=== PATIENT | female | born 1975 | race Caucasian/White ===

== ENCOUNTER 2018-11-09 08:13 | Observation (INO) ==
[2018-11-09] MEDS ORDERED: *HR* Midazolam HCl 2 MG/2 ML VIAL ONE (08:32)
[2018-11-09] MEDS ORDERED: *HR* FentaNYL (PF) 100 MCG/2 ML VIAL ONE (08:32)
[2018-11-09] MEDS ORDERED: *HR* Rocuronium Bromide 50 MG/5 ML VIAL ONE (08:33)
[2018-11-09] MEDS ORDERED: *HR* Propofol 200 MG/20 ML VIAL IVP ONE (08:33)
[2018-11-09] MEDS ORDERED: Lidocaine -MPF 2% 2 ML VIAL ONE (08:33)
[2018-11-09] MEDS ORDERED: Lidocaine HCL 4 ML Topical Solution (Laryng-O-Jet Kit Sterile Pak) TP ONE (08:37)
[2018-11-09] MEDS ORDERED: CeFAZolin Syr 2,000MG/20 ML 2,000 MG/20 ML SYRINGE IVPB ONE (08:44)
[2018-11-09] MEDS ORDERED: Ketorolac 30 MG/ML VIAL IVP ONE (08:44)
[2018-11-09] MEDS ORDERED: Albuterol 2.5 MG/3 ML NEBULIZER IH ONE (08:44)
[2018-11-09] MEDS ORDERED: Acetaminophen IV 1,000 MG/100 ML INFUS..BTL IVPB ONE (08:45)
[2018-11-09] MEDS: Ringers Solution, Lactated 1,000 ML IVC SCH (09:00)
--- NOTE | 2018-11-09 09:38 | Anesthesia Evaluation PreOp ---
Date of Encounter: 11/09/18 Time of Encounter: 09:36 - Past History Planned Operation: Robotic Incisional hernia repaair, Lap R oophorectomy Cardiac History: Hyperlipidemia, Other (PFO) Pulmonary History: Denies Any Significant HX MEDICAL INTERPRETER History: CVA (R sided numbness and tingling), Other (fibromyalgia) Other Medical History: GERD, Other (factor V leiden) Anesthesia History: No Prior Anesthetic Complications, Past Anesthesia (R carotid stent, LAVH) Test: Negative ([facility]) Alcohol Use: none Drug use: none Medications and Allergies Atorvastatin [Lipitor] 40 mg PO HS 02/22/16 [History] Diphenoxylate/Atropine [Lomotil 2.5 mg/0.025 mg] 1 each PO TID PRN 02/22/16 [History] Milnacipran HCl [Savella] 50 mg PO BID 02/22/16 [History] Ranitidine HCl [Heartburn Relief] 150 mg PO BID 02/22/16 [History] Tizanidine HCl [Zanaflex] 4 mg PO TID PRN 02/22/16 [History] Warfarin [Coumadin] 10 mg PO 5XW 05/23/16 [History] BuPROPion [Wellbutrin] 150 mg PO BID 09/20/16 [History] Metoprolol [Lopressor] 25 mg PO PRN PRN 09/20/16 [History] Warfarin [Coumadin] 12.5 mg PO 2XW 09/20/16 [History] Cyclobenzaprine [Flexeril] 10 mg PO TID #30 tablet 09/17/18 [Rx] Dexlansoprazole [Dexilant] 60 mg PO BID 09/17/18 [History] Diclofenac Sodium [Voltaren] 100 gm TP DAILY 09/17/18 [History] Ergocalciferol (VITAMIN D2) [Vitamin D2] 50,000 unit PO QWEEK 09/17/18 [History] Ferrous Sulfate 325 mg PO DAILY 09/17/18 [History] Ondansetron HCl [Zofran] 4 mg PO Q8HR PRN 09/17/18 [History] Pantoprazole Sodium [Protonix] 40 mg PO DAILY 09/17/18 [History] Paroxetine [Paxil] 10 mg PO DAILY 09/17/18 [History] Promethazine [Phenergan] 25 mg PO Q6HR PRN 09/17/18 [History] Topiramate [Topamax] 50 mg PO BID 09/17/18 [History] Nitrofurantoin (BID) [Macrobid] 100 mg PO BID #13 capsule 09/24/18 [Rx] Allergy/AdvReac Type Severity Reaction Status Date / Time tramadol AdvReac See Verified 11/09/18 09:39 Comments - Meds/Allergy Pre-op Review Medications Reviewed: Yes Allergies Reviewed: Yes Beta Blockers on Current Med List: Yes If Beta Blockers taken, Date/Time (Last Dose taken): pt states prn for tachycardia and does not remember last dose Anesthesia Results - Labs Laboratory Tests 09/17/18 11/05/18 11/05/18 11:37 16:55 16:55 WBC Hgb Hct Plt Count PT 21.7 H INR 1.9 APTT 58.1 H Sodium 139 Potassium 3.9 Chloride 112 H Carbon Dioxide 21 L BUN 13 Creatinine 0.74 Glucose 101 11/05/18 16:55 WBC 5.4 Hgb 13.5 Hct 40.3 Plt Count 172 PT INR APTT Sodium Potassium Chloride Carbon Dioxide BUN Creatinine Glucose - Imaging EKG: report reviewed (Interpretive Statements SINUS RHYTHM POSSIBLE RIGHT VENTRICULAR CONDUCTION DELAY Electronically Signed On 10-29-2018 15:07:33 EDT by Kin Real) Anesthesia Exam O2 Sat Height 1.73 m Height 1.73 m Weight 81.193 kg Weight 81.193 kg O2 Sat by Pulse Oximetry 99 Vital Signs Temp Pulse Resp BP Pulse Ox 97.9 F 66 18 104/70 99 11/09/18 08:45 11/09/18 08:45 11/09/18 08:45 11/09/18 08:45 11/09/18 08:45 Weight: 81kg NPO (# of Hours): >8 - HEENT Pupil (Motor): Pupils equal, EOMI Mallampati: II Teeth: Normal Oral Opening: Greater than 3 - MEDICAL INTERPRETER LOC: Oriented MEDICAL INTERPRETER Motor: Normal RUE, Normal LUE, Normal RLE, Normal LLE, Normal Face MEDICAL INTERPRETER Sensory: Normal: LUE, RLE, LLE, Deficit: RUE (Numbness right fingertips ), Face (R perioral numbness) - Cardiac Rhythm: Regular - Pulmonary Breath Sounds: bilateral Clear Respiratory Effort: Symmetrical Anesthesia Assess/Plan ASA Score: 3 Level of consciousness: Cooperative Anesthetic Plan: General Monitoring Plan: Standard Monitors Recovery Plan: PACU
--- NOTE | 2018-11-09 09:49 | History & Physical Report ---
Date of Encounter: 11/09/18 Time of Encounter: 09:48 24 Hour HP Update - Instructions Instructions: If the History and Physical is less than 30 days old and was completed prior to A.M. admission and or procedure and has NOT been updated on calendar day of procedure please complete this update prior to performing procedure. 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
--- NOTE | 2018-11-09 09:52 | OB/GYN Procedure Note ---
Laparoscopy Procedure - Diagnosis Date of procedure: 11/09/18 Pre-op diagnosis: other (1. Chronic RLQ Pain 2. Right Ovarian Cyst 3. S/P LAVH with LSO) Post-op diagnosis: same, pelvic adhesive disease - Procedure Laparoscopy procedure: operative laparoscopy, right salpingo oophorectomy Surgeon: Samantha Rodríguez Was there an insurance underwriting assistant present: Yes Rollway Man: Jil Fernandez Anesthesia Type: General Estimated blood loss (cc): 5 Complications: none Specimens: right ovary, right fallopian tube Findings: Multiple omental adhesions to the anterior aspect of the abdomen. These were taken down by Dr. Fernandez. The right ovary, with attached fallopian tube, had to 2-3 cm cysts but appeared grossly normal. Disposition: floor Narrative: Operation Performed Operative Laparoscopy with Right Salpingo-oophorectomy Indication for Surgery 43yo presents to preop for operative laparoscopy with right salpingo-oophorectomy. The patient has a history of persistent right lower quadrant pain and right ovarian cysts. She also has an umbilical hernia and a history of multiple abdominal surgeries. This procedure was boarded for co- surgery with Dr. Fernandez to perform lysis of adhesions and her hernia repair. Please see Dr. Fernandez's operative report for her portion of the case. In 2008 she went underwent a laparoscopic-assisted vaginal hysterectomy with a left salpingo-oophorectomy. The patient was informed of the risks and benefits of operative laparoscopy with right salpingo-oophorectomy. Risks included but were not limited to bleeding, infection, injury to the vulva, vagina or cervix, uterine perforation, bowel, bladder, ureters and surrounding neurovascular bundles, and the need for subsequent procedures. She is aware that removal of her last remaining ovary will put her into surgical menopause. She is also aware that she is not a candidate for hormone replacement therapy due to her history of DVT and stroke. The patient expressed understanding of the risks involved. All questions were answered and the patient consented to the procedure. Preoperative Diagnosis 1. Chronic right lower quadrant pain 2. Right ovarian cysts 3. Status post LAVH with LSO Postoperative Diagnosis Same + 4. Adhesive disease Surgeon Samantha Rodríguez D.O. Rollway Man(s) Jil Fernandez M.D. Anesthesia General Estimated Blood Loss 5 mL Findings Multiple adhesions of the omentum to the anterior abdominal wall. Grossly normal-appearing right ovary and fallopian tube with two 2-3 cm ovarian cysts. Complications None Specimens Right fallopian tube & Ovary Technique The patient was taken to the operating room where a timeout was performed to confirm correct patient and correct procedure. The patient was given general an esthesia and then positioned on the operating table in the supine position. All pressure points were padded and a warm blanket was placed to maintain control of core body temperature. The patient was then prepped and draped in the usual sterile fashion. Dr. Fernandez proceeded with abdominal entry, robotic port placement and lysis of adhesions. Please see Dr. Fernandez's operative report for further detail. Following lysis of adhesions, the right fallopian tube and ovary were visualized. A 5mm port, under direct visualization, was placed in the right lower quadrant without difficulty. The LigaSure and graspers were then used, by myself and Dr. Fernandez respectively, to isolate the RIGHT fallopian tube and ovary to seal, transect and remove the RIGHT Fallopian tube and ovary. The specimens were removed through an 8 mm port, using an Endocatch bag, and sent to Pathology as a single specimen. The right side of the pelvis was again surveyed and good hemostasis noted. The LigaSure was removed and Dr. Fernandez proceeded with the robotic assisted hernia repair with mesh. Please see Dr. Fernandez's operative report for her portion of the case.
[2018-11-09] MEDS ORDERED: *HR* Meperidine 25 MG/ML SYRINGE IVP PRN (09:57)
[2018-11-09] MEDS ORDERED: *HR* HYDROmorphone (PF) 1 MG/ML SYRINGE IVP PRN (09:57)
[2018-11-09] MEDS ORDERED: Ondansetron 4 MG/2 ML VIAL IVP ONE (09:57)
[2018-11-09] MEDS ORDERED: *HR* OxyCODONE Immed Rel 5 MG TABLET PO PRN (09:57)
[2018-11-09] MEDS ORDERED: *HR* Promethazine 25 MG/ML VIAL IVP PRN (09:57)
[2018-11-09] MEDS ORDERED: *HR* Succinylcholine 200 MG/10 ML VIAL IVP ONE (10:24)
[2018-11-09] MEDS ORDERED: Bupivacaine/EPI 1:200k 0.25%PF 30 ML VIAL ONE (11:06)
--- NOTE | 2018-11-09 11:10 | General Surg History&Physical ---
Date of Encounter: 11/09/18 Time of Encounter: 11:07 Assessment and Plan (1) Factor V deficiency Current Visit: Yes Status: Acute The assessment and plan as outlined above was discussed with the patient and/or family members who expressed understanding and agreement. All questions were answered. was bridged with lovenox, off coumadin 5 days (2) Incisional hernia Current Visit: Yes Status: Chronic The assessment and plan as outlined above was discussed with the patient and/or family members who expressed understanding and agreement. All questions were answered. planning robotic incisional hernia repair with mesh, lysis of adhesions Qualifiers: Obstruction and gangrene presence: without obstruction or gangrene Qualified Code(s): K43.2 - Incisional hernia without obstruction or gangrene; K43.91 - Incisional hernia, without obstruction or gangrene (3) Right ovarian cyst Current Visit: Yes Status: Chronic The assessment and plan as outlined above was discussed with the patient and/or family members who expressed understanding and agreement. All questions were answered. (4) Abdominal pain Current Visit: Yes Status: Chronic The assessment and plan as outlined above was discussed with the patient and/or family members who expressed understanding and agreement. All questions were answered. Qualifiers: Abdominal location: periumbilical Qualified Code(s): R10.33 - Periumbilical pain History of Present Illness Chief complaint: abdominal pain, incisional hernia HPI: Ms. Leung is a 43 year old female with history factor V leiden, history cva, incisional hernia and abdominal pain Past Med Surg Social Fam HX - Past Medical History Source: patient, old records reviewed Medical history: CVA, hyperlipidemia, other Additional medical history: Factor 5, fibromyalgia, HLD, migraines, Rt carotid artery stent, history intra-abd adhesions. PFO Psychiatric history: no psych history - Past Surgical History Surgical History: hysterectomy, other Additional surgical history: sigmoid injury/repair, right carotid stent, LSO, ex lap YENIFER - Social History Smoking Status: Never smoker Smokeless Tobacco Status: No Alcohol use: none Drug use: none - Family History Grandmother History Unknown: Yes Medications and Allergies Diphenoxylate/Atropine [Lomotil 2.5 mg/0.025 mg] 1 each PO QID PRN 02/22/16 [History] Milnacipran HCl [Savella] 50 mg PO BID 02/22/16 [History] Ranitidine HCl [Heartburn Relief] 150 mg PO BID 02/22/16 [History] Tizanidine HCl [Zanaflex] 4 mg PO TID PRN 02/22/16 [History] Warfarin [Coumadin] 10 mg PO SUMOWEFRSA 05/23/16 [History] Warfarin [Coumadin] 12.5 mg PO TUTH 09/20/16 [History] Ergocalciferol (VITAMIN D2) [Vitamin D2] 50,000 unit PO MO 09/17/18 [History] Ferrous Sulfate 325 mg PO QPM 09/17/18 [History] Pantoprazole Sodium [Protonix] 40 mg PO QAM 09/17/18 [History] Topiramate [Topamax] 50 mg PO BID 09/17/18 [History] Ascorbate Calcium [Vitamin C] 500 mg PO QPM 11/09/18 [History] Atorvastatin [Lipitor] 40 mg PO QPM 11/09/18 [History] BuPROPion SR (12 HR) [Wellbutrin SR] 150 mg PO BID 11/09/18 [History] Enoxaparin [Lovenox] 80 mg SQ BID 11/09/18 [History] Allergy/AdvReac Type Severity Reaction Status Date / Time tramadol AdvReac See Verified 11/09/18 09:39 Comments Review of Systems All systems PM: reviewed and no additional remarkable complaints except as stated All systems PM: The remainder of the systems were reviewed and are negative General Surgery Exam Initial Vital Signs Temp Pulse Resp BP Pulse Ox 97.9 F 66 18 104/70 99 11/09/18 08:45 11/09/18 08:45 11/09/18 08:45 11/09/18 08:45 11/09/18 08:45 - General physical appearance well nourished, no distress - Eyes normal ocular movement - ENT normal mucosa - Neck trachea midline - Respiratory normal expansion, clear to auscultation - Cardiovascular Cardiovascular exam: Present: RRR - Abdomen Abdomen general surgery: Present: soft Hernia: Present: incisional - Integumentary Integumentary general surgery: Present: warm and dry - Neurologic Present: normal coordination - Musculoskeletal Present: normal posture - Psychiatric Psychiatric general surgery: Present: A&Ox3 Results - Labs All other labs normal.
[2018-11-09] MEDS ORDERED: EPHEDrine 50 MG/ML VIAL ONE (11:50)
[2018-11-09] MEDS ORDERED: Dexamethasone 4 MG/ML VIAL ONE (12:35)
[2018-11-09] MEDS ORDERED: Neostigmine Methylsulfate 3 MG/3 ML SYRINGE ONE (12:35)
[2018-11-09] MEDS ORDERED: Ondansetron 4 MG/2 ML VIAL ONE (12:35)
[2018-11-09] MEDS ORDERED: Naloxone 0.4 MG/ML INJ IVP PRN (13:46)
--- NOTE | 2018-11-09 13:46 | Operative Note ---
Date of procedure: 11/09/18 Pre-op diagnosis: incisional hernia, abdominal pain Post-op diagnosis: same Procedure: Laparoscopic lysis of adhesions, robotic incisional hernia repair with mesh. Complications: none immediate Anesthesia: ADRIEL, local Surgeon: Jil Fernandez Was there an pharmacy sales assistant present: Yes Shift Stacker: Jossy Rodriguez Estimated blood loss (cc): 5 Specimen: none Condition: stable Disposition: PACU Procedure in Detail: The patient was brought to the operating suite and placed supine on the operating table. Sign in was performed and everyone was in agreement. Anesthesia was induced and patient was endotracheally intubated by anesthesia without incident. The arms were tucked bilaterally at the sides. The abdomen was prepped and draped in the usual sterile fashion. Timeout was performed again everyone was in agreement. An incision in the left upper quadrant subcostal position was made with an 11 blade. The Veress needle was placed through this and a water drop test confirmed placement. The abdomen was insufflated. We then entered the abdomen with a 5 mm 0 degree laparoscope on a 5 mm Xcel trocar. The area under entry was visualized there was no bleeding or apparent organ injury. We then placed a 8 mm port in the left lateral position under direct visualization after first incising the skin with an 11 blade. We then placed a 8 mm port in the left lower quadrant under direct visualization after first incising the skin with an 11 blade. The laparoscope was placed through this and we exchanged the 5 mm left upper quadrant port for an 8 mm port. The patient was placed in slight Trendelenburg position. Lysis of adhesions for 40 minutes was performed with gentle blunt dissection with the laparoscopic deBakey and heated scissors. Omental fat was in the patients several small upper midline incisional hernias and was reduced with the DeBakey. A 5 mm port was placed in the patients right lower quadrant under direct visualization after first incising the skin with an 11 blade. Patient was placed in steep trendelenberg left side down position. The right ovary was grasped with a DeBakey. Dr Rodríguez scrubbed in and completed the right salpingo-oophorectomy and her portion of the procedure is dictated in a separate note. The ovary was placed in a 8 mm laparoscopic Endo Catch bag and pulled out the left lateral 8 mm port site. The abdominal wall where the tube and ovary was excised with the fiber in the was no bleeding. Two #0 V-lock absorbable stitches were placed in the abdominal cavity as well as a 12 cm round symbotex covidian mesh. The mesh had a previously placed 2-0 vicryl tied to the middle of the mesh. The robot was brought over the patient's right abdomen and docked. The 2-0 Vicryl in the middle of the mesh was then pulled up through the abdominal wall near the hernia defect with a laparoscopic suture passer after a stab incision in the left abdomen skin several centimeters away from the umbilicus was made with 11 blade. The mesh was pulled up to the abdominal wall with the Vicryl stitch and hemostat was placed keeping the mesh taut against the abdominal wall. The mesh was secured to the abdominal wall with two #0 V-loc vicryl running stitches circumferentially. The two sutures were removed from the abdominal cavity. The air was evacuated from the abdominal cavity and the trochars removed. The middle 8 mm trocar site was closed at the abdominal wall with an 0 Vicryl [id number] stitch. 30 mL of 0.5% Marcaine was injected subcutaneously at the 3 port sites. The skin at the three 8 mm port sites were closed with a 4-0 Monocryl interrupted subcuticular stitch. The skin at the 5 mm port site was closed with a 4-0 Monocryl interrupted stitch. Mastisol and steristrips were placed to all wounds. All lap and instrument counts are correct at the end of the case. The patient was awoken by anesthesia and extubated in the OR without incident. The patient tolerated procedure well taken to PACU in stable condition.
[2018-11-09] MEDS ORDERED: 0.9 % Sodium Chloride 1,000 ML IVC SCH (14:00)
--- NOTE | 2018-11-09 14:22 | Anesthesia Evaluation Post Op ---
Date of Encounter: 11/09/18 Time of Encounter: 14:22 - Vital Signs Vital Signs: Vital Signs/O2 Sat/Glucose, Most Recent Temp Pulse Resp BP Pulse Ox 97.7 F 74 16 90/55 100 11/09/18 14:16 11/09/18 14:16 11/09/18 14:16 11/09/18 14:16 11/09/18 14:16 - Lungs Lungs: Clear Ascult./Percussion - Airway Airway: Non-obstructed - Cardiovascular Regular Rate - Mental Status Mental Status: Alert & Oriented, Answers Appropriately - Pain Pain Scale: 0 Pain Scale used: Numeric (1 - 10) - Nausea Vomiting Nausea Vomiting: Not Present - Discharge PostOp Status: Discharge Patient to home
[2018-11-09] MEDS: *HR* HYDROcodone/Acet 5/325 mg TABLET PO PRN ×2 (17:19→21:28)
[2018-11-09] MEDS ORDERED: *HR* Warfarin 10 MG TABLET PO SCH (18:00)
[2018-11-09] MEDS: *HR* Promethazine 25 MG/ML VIAL IVP PRN (18:33)
[2018-11-09] MEDS: Topiramate 25 MG TABLET PO SCH (20:29)
[2018-11-09] MEDS: BuPROPion SR (12 HR) 150 MG TABLET PO SCH (20:29)
[2018-11-09] MEDS: *HR* Enoxaparin 80 MG/0.8 ML SYRINGE SQ SCH (20:30)
[2018-11-09] MEDS: Ondansetron 4 MG/2 ML VIAL IVP PRN (23:15)
[2018-11-10] MEDS: *HR* HYDROcodone/Acet 5/325 mg TABLET PO PRN ×2 (02:24→07:23)
[2018-11-10] MEDS: *HR* Promethazine 25 MG/ML VIAL IVP PRN (02:27)
[2018-11-10 06:27] LABS: Basophils % 0.1 %; Hemoglobin 12.4 g/dL (11.5-15.4); Immature Granulocytes % 0.4 % (0-4); Lymphocytes % 12.9 %; Mean Corpuscular HGB Conc 32.6 g/dL (31.6-35.5); Mean Corpuscular Hemoglobin 31.2 pg (28.0-33.3); Mean Corpuscular Volume 95.7 fL (83.0-100.0); Mean Platelet Volume 10.2 fL (9.4-12.4); Monocytes # 0.7 K/mcL (0.0-1.3); Monocytes % 9.4 %; Neutrophils # 5.8 K/mcL (1.6-8.9); Platelet Count 161 K/mcL (140-400); Red Blood Count 3.97 M/mcL (3.82-4.97); Red Cell Distribution Width 12.8 % (11.5-14.5); Segmented Neutrophils % 77.2 %; White Blood Count 7.5 K/mcL (4.3-11.1)
[2018-11-10] MEDS: Ondansetron 4 MG/2 ML VIAL IVP PRN ×2 (06:30→22:48)
[2018-11-10 06:31] LABS: INR 1.1; Prothrombin Time 12.6 Seconds (9.4-12.1)
[2018-11-10] MEDS: *HR* Enoxaparin 80 MG/0.8 ML SYRINGE SQ SCH ×2 (07:24→20:52)
[2018-11-10] MEDS: Topiramate 25 MG TABLET PO SCH ×2 (07:26→20:51)
[2018-11-10] MEDS: BuPROPion SR (12 HR) 150 MG TABLET PO SCH ×2 (07:27→20:51)
--- NOTE | 2018-11-10 07:56 | Event Note ---
Date of Encounter: 11/10/18 Time of Encounter: 07:48 Pt is POD #1 s/p Laparoscopic lysis of adhesions, robotic incisional hernia repair with mesh with Dr. Fernandez & Laparoscopic right salpingo-oophorectomy with Dr. Rodríguez. She is tolerating a diet, no nausea or vomiting. She is not passing gas but she states that that is sometimes a problem due to her IBS. She states that her abdomen is" a lot of pain". She has not received a Tiro 5 since surgery. Her lidocaine patch was put on yesterday afternoon. She has not been able to ambulate due to the pain. She states that she is using her incentive spirometer (although it is currently by the window). She denies new onset chest pain or shortness of breath. Gen: NAD, AOx3 Heart: RRR Lungs: CTAB Abd: soft, +TTP in all quadrants, no R/R/G, +BS Exts: B/L LE have SCDs, posterior tibial pulses present and equal bilaterally, neg Marylin's A/P: 1. RLQ Pain - s/p Laparoscopic lysis of adhesions, robotic incisional hernia repair with mesh with Dr. Fernandez & Laparoscopic right salpingo-oophorectomy with Dr. Rodríguez - PO pain management per Dr. Fernandez - Increase ambulation to TID, laps up & down hallway - IS use 10x/hr while awake - Advance diet as tolerated, pending Dr. Fernandez's approval - Anticipate DC home when stable form Gen Surg standpoint & anticoagulated. INR this morning 1.1 2. Right Ovarian Cysts - s/p removal
[2018-11-10] MEDS ORDERED: Acetaminophen IV 1,000 MG/100 ML INFUS..BTL IVPB ONE (08:48)
[2018-11-10] MEDS ORDERED: *HR* FentaNYL (PF) 100 MCG/2 ML VIAL IVP ONE (08:49)
[2018-11-10] MEDS: Ringers Solution, Lactated 1,000 ML IVC SCH (09:08)
--- NOTE | 2018-11-10 10:24 | General Surgery Progress Note ---
<TonyMarija Meyer - Last Filed: 11/10/18 10:21> Date of Encounter: 11/10/18 Time of Encounter: 08:30 - Assessment and Plan (1) Incisional hernia Current Visit: Yes Status: Chronic Date of procedure: 11/09/18 Pre-op diagnosis: incisional hernia, abdominal pain Post-op diagnosis: same Procedure: Laparoscopic lysis of adhesions, robotic incisional hernia repair with mesh. Complications: none immediate Anesthesia: ADRIEL, local Surgeon: Jil Fernandez 12 cm round symbotex covidian mesh placed during procedures. Patient was also noted to undergo right salpingo-oopherectomy by Dr. Rodríguez at that time. POD #1 as above. She is recovering has expected today. She is having abdominal pain that she states is not controlled. She is getting out of bed, voiding per bedside commode, and denies nausea or vomiting. Plan: Continue supportive care and discomfort management while awaiting full return of bowel function stop [place], start Percocet 1G Ofirmev IV x1 dose fentanyl 50 g times 1 dose *avoid Toradol secondary to anticoagulation to reduce the risk of posto perative bleeding Continue G.I. 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 Lovenox BID resume warfarin therapy continue to closely monitor for postoperative bleeding (3) Right ovarian cyst Current Visit: Yes Status: Chronic See above Subjective Patient reports: still having pain (states not controlled), voiding w/o difficulty, no flatus, no bowel movement, afebrile Objective Vital Signs - Last 8 Hours Temp Pulse Resp BP Pulse Ox 11/10/18 07:02 98.6 F 80 15 111/69 98 11/10/18 04:50 98.3 F 83 16 117/70 98 Intake and Output 11/09/18 11/10/18 11/10/18 23:59 07:59 15:59 Intake Total 100 / 520 496 / 716 220 / 716 Output Total 250 / 255 900 / 900 Balance -150 / 265 -404 / -184 220 / -184 Intake: IV Fluids 496 / 596 100 / 596 0.9 % Sodium Chloride 1,000 ML 496 / 496 @ 30 mls/hr IVC .Q24H SURYA Rx#: [id number] Ofirmev 1,000 mg/100 ml 1,000 100 / 100 mg In 100 ml @ 400 mls/hr IVPB ONCE ONE Rx#:[id number] Oral 100 / 100 120 / 120 Output: Urine 250 / 250 900 / 900 Other: # Voids 1 Weight 84.368 kg Patient Weight 11/10/18 23:59 Weight 84.368 kg - General physical appearance well nourished, no distress, moderate pain - Eyes normal ocular movement - ENT atraumatic, normocephalic - Neck Neck exam: trachea midline - Respiratory normal expansion, normal respiratory effort - Cardiovascular Cardiovascular exam: Present: RRR - Abdomen Abdomen: Present: soft, tender (expectd postoperative). 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 continue lovenox and coumadin, trend inr (2) Incisional hernia Current Visit: Yes Status: Chronic s/p lap YENIFER, right salpingoophorectomy, incisional hernia repair with mesh adv diet as tolerated prn antiemetics continue home meds change po pain medication to percocet start lidoderm patch OOB to chair ambulate TID Qualifiers: Obstruction and gangrene presence: without obstruction or gangrene Qualified Code(s): K43.2 - Incisional hernia without obstruction or gangrene; K43.91 - Incisional hernia, without obstruction or gangrene (3) Right ovarian cyst Current Visit: Yes Status: Chronic s/p right salpingo-oophorectomy (4) Abdominal pain Current Visit: Yes Status: Chronic pain not controlled post op start percocet lidoderm patch Qualifiers: Abdominal location: right upper quadrant Qualified Code(s): R10.11 - Right upper quadrant pain Subjective Patient reports: still having pain (states not controlled, primarly right sided abdomen), voiding w/o difficulty, no flatus, no bowel movement, nausea, afebrile Objective Vital Signs - Last 8 Hours Temp Pulse Resp BP Pulse Ox 11/11/18 15:03 98.9 F 90 14 113/77 98 Intake and Output 11/11/18 11/11/18 11/11/18 07:59 15:59 23:59 Intake Total 0 / 0 Output Total 0 / 200 200 / 200 Balance 0 / -200 -200 / -200 Intake: Oral 0 / 0 Output: Urine 0 / 200 200 / 200 Other: Percent of Meal Consumed 0% - General physical appearance well developed, well nourished - Eyes normal ocular movement - ENT normal mucosa, normocephalic - Neck Neck exam: trachea midline - Respiratory normal expansion, normal respiratory effort - Cardiovascular Cardiovascular exam: Present: RRR - Abdomen Abdomen: Present: bowel sounds present, soft, tender - Incision Incision: Present: clean and dry, intact - Integumentary no rash - Neurologic normal coordination, normal sensation - Musculoskeletal normal posture - Psychiatric oriented to time, oriented to person, oriented to place - Labs 11/11/18 04:59 - Attending Attestation I have personally performed a face to face evaluation on this patient. I have reviewed and agree with the care plan. History and Exam by me shows:
[2018-11-10] MEDS: *HR* OxyCODONE/APAP 5/325 TABLET PO PRN ×3 (11:30→20:51)
[2018-11-10] MEDS: tiZANidine 4 MG TABLET PO PRN ×2 (13:28→22:52)
[2018-11-10] MEDS: *HR* Warfarin 10 MG TABLET PO SCH (17:28)
[2018-11-10] MEDS ORDERED: *HR* Warfarin 2.5 MG TABLET PO SCH (18:00)
[2018-11-10] MEDS ORDERED: *HR* Warfarin 10 MG TABLET PO SCH (18:00)
[2018-11-11] MEDS: *HR* OxyCODONE/APAP 5/325 TABLET PO PRN ×3 (01:20→18:12)
[2018-11-11] MEDS: *HR* Promethazine 25 MG/ML VIAL IVP PRN ×2 (01:24→13:34)
[2018-11-11 05:58] LABS: Basophils % 0.3 %; Eosinophils # 0.1 K/mcL (0.0-0.6); Eosinophils % 1.6 %; Hematocrit 36.6 % (35.3-44.9); Immature Granulocytes % 0.4 % (0-4); Lymphocytes # 1.4 K/mcL (0.6-4.6); Lymphocytes % 18.2 %; Mean Corpuscular HGB Conc 32.8 g/dL (31.6-35.5); Mean Corpuscular Hemoglobin 31.3 pg (28.0-33.3); Mean Corpuscular Volume 95.3 fL (83.0-100.0); Mean Platelet Volume 10.3 fL (9.4-12.4); Monocytes # 0.6 K/mcL (0.0-1.3); Monocytes % 7.4 %; Neutrophils # 5.4 K/mcL (1.6-8.9); Platelet Count 163 K/mcL (140-400); Red Blood Count 3.84 M/mcL (3.82-4.97); Red Cell Distribution Width 13.1 % (11.5-14.5); Segmented Neutrophils % 72.1 %; White Blood Count 7.5 K/mcL (4.3-11.1)
[2018-11-11 06:11] LABS: INR 1.3
[2018-11-11] MEDS: BuPROPion SR (12 HR) 150 MG TABLET PO SCH ×2 (09:47→22:45)
[2018-11-11] MEDS: *HR* Enoxaparin 80 MG/0.8 ML SYRINGE SQ SCH ×2 (09:47→22:44)
[2018-11-11] MEDS: Topiramate 25 MG TABLET PO SCH ×2 (09:47→22:45)
[2018-11-11] MEDS: Ondansetron 4 MG/2 ML VIAL IVP PRN ×2 (09:56→18:12)
--- NOTE | 2018-11-11 13:06 | General Surgery Progress Note ---
<Cassidy Fenton - Last Filed: 11/11/18 14:23> Date of Encounter: 11/11/18 Time of Encounter: 11:30 - Assessment and Plan (1) Incisional hernia Current Visit: Yes Status: Chronic POD #2 Laparoscopic lysis of adhesions, robotic incisional hernia repair with mesh with Dr. 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 Continue lovenox bridge Continue wafarin Repeat PT/INR in the am (3) Abdominal pain Current Visit: Yes Status: Chronic Right sided abdominal pain Lidocaine patch placed to right side Continue Oxycodone and Percocet prn Qualifiers: Abdominal location: right upper quadrant Qualified Code(s): R10.11 - Right upper quadrant pain Subjective Patient reports: still having pain, voiding w/o difficulty, no flatus, no bowel movement, nausea, afebrile, other (Patient states that her right sided pain has not improved.) Objective Vital Signs - Last 8 Hours Temp Pulse Resp BP Pulse Ox 11/11/18 06:30 98.8 F 88 14 96/62 97 Intake and Output 11/10/18 11/11/18 11/11/18 23:59 07:59 15:59 Intake Total 0 / 820 Output Total 0 / 900 0 / 0 Balance 0 / -80 0 / 0 Intake: Oral 0 / 120 Output: Urine 0 / 900 0 / 0 - General physical appearance well developed, well nourished, moderate distress, moderate pain - Eyes normal ocular movement - ENT normal mucosa, atraumatic, normocephalic - Neck Neck exam: trachea midline - Respiratory normal respiratory effort, clear to auscultation, other (diminished bibasilar bases) - Cardiovascular Cardiovascular exam: Present: RRR - Abdomen Abdomen: Present: bowel sounds present, soft, tender (right sided tenderness) - Incision Incision: Present: clean and dry, intact - Neurologic CN 2-12 grossly intact - Psychiatric oriented to time, oriented to person, oriented to place, speech is normal, memory intact - Labs 11/11/18 04:59 Consult Discharge Plan - Plan Referrals: Jil Fernandez MD [Partnered Physician] - 11/25/18 2:20 pm Itzel Hatfield CNP [Primary Care Provider] - - Attending Attestation For this encounter, I have reviewed the [employer] or PA documentation, treatment plan, and medical decision making; and I have had face to face time with this patient. 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 continue lovenox, coumadin, monitor INR (2) Incisional hernia Current Visit: Yes Status: Chronic pod 2, stacey, RIHR with mesh regular diet pain control ambulate OOB to chair reglan added for nausea lidoderm patch Qualifiers: Obstruction and gangrene presence: without obstruction or gangrene Qualified Code(s): K43.2 - Incisional hernia without obstruction or gangrene; K43.91 - Incisional hernia, without obstruction or gangrene (3) Abdominal pain Current Visit: Yes Status: Chronic will increase percocet to 7.5 mg Qualifiers: Abdominal location: right upper quadrant Qualified Code(s): R10.11 - Right upper quadrant pain Subjective Patient reports: still having pain (no improvement compared to yesterday), voiding w/o difficulty, no flatus, no bowel movement, nausea (better than yesterday), other Objective Vital Signs - Last 8 Hours Temp Pulse Resp BP Pulse Ox 11/11/18 15:03 98.9 F 90 14 113/77 98 Intake and Output 11/11/18 11/11/18 11/11/18 07:59 15:59 23:59 Intake Total 0 / 0 Output Total 0 / 200 200 / 200 Balance 0 / -200 -200 / -200 Intake: Oral 0 / 0 Output: Urine 0 / 200 200 / 200 Other: Percent of Meal Consumed 0% - General physical appearance well developed, well nourished, no distress, moderate pain - Eyes normal ocular movement - ENT normal mucosa, normocephalic - Respiratory clear to auscultation - Cardiovascular Cardiovascular exam: Present: RRR - Abdomen Abdomen: Present: bowel sounds present, soft, tender. Absent: distended, guarding - Incision Incision: Present: clean and dry, intact - Integumentary no rash, no growths - Musculoskeletal normal posture - Psychiatric oriented to time, oriented to person, oriented to place, speech is normal, memory intact - Labs 11/11/18 04:59 - Attending Attestation I have personally performed a face to face evaluation on this patient. I have reviewed and agree with the care plan. History and Exam by me shows:
[2018-11-11] MEDS: Metoclopramide 10 MG/2 ML VIAL IVP SCH ×2 (18:09→22:46)
[2018-11-11] MEDS: *HR* Warfarin 10 MG TABLET PO SCH (18:09)
[2018-11-11] MEDS: *HR* OxyCODONE/APAP 7.5/325 TABLET PO PRN (22:46)
[2018-11-12] MEDS: *HR* OxyCODONE/APAP 7.5/325 TABLET PO PRN ×2 (05:55→11:25)
[2018-11-12] MEDS: Metoclopramide 10 MG/2 ML VIAL IVP SCH ×2 (05:55→11:25)
[2018-11-12 07:26] VITALS: BP 105/68
[2018-11-12] MEDS: *HR* Enoxaparin 80 MG/0.8 ML SYRINGE SQ SCH (08:04)
[2018-11-12] MEDS: BuPROPion SR (12 HR) 150 MG TABLET PO SCH (08:04)
[2018-11-12] MEDS: Topiramate 25 MG TABLET PO SCH (08:04)
--- NOTE | 2018-11-12 09:24 | Discharge Summary ---
Date of Encounter: 11/12/18 Time of Encounter: 10:13 - Discharge Diagnosis (1) Incisional hernia Priority: Primary Status: Resolved Qualifiers: Obstruction and gangrene presence: without obstruction or gangrene Qualified Code(s): K43.2 - Incisional hernia without obstruction or gangrene; K43.91 - Incisional hernia, without obstruction or gangrene (2) Factor V deficiency Priority: Secondary Status: Chronic (3) Right ovarian cyst Priority: Secondary Status: Chronic General Surgery Exam Initial Vital Signs Temp Pulse Resp BP Pulse Ox 97.9 F 66 18 104/70 99 11/09/18 08:45 11/09/18 08:45 11/09/18 08:45 11/09/18 08:45 11/09/18 08:45 - General physical appearance well nourished, no distress, no pain (moderate with movement but controlled) - Neck trachea midline - Respiratory normal expansion, normal respiratory effort - Cardiovascular Cardiovascular exam: Present: RRR - Abdomen Abdomen general surgery: Present: bowel sounds present, soft, tender (expected postoperative) - Incision Incision: Present: clean and dry, intact - Integumentary Integumentary general surgery: Present: warm and dry - Neurologic Present: normal coordination, normal sensation - Musculoskeletal Present: normal gait, normal posture - Psychiatric Psychiatric general surgery: Present: A&Ox3 - Hospital Course Hospital course: Ms. Leung is a 43 year old female who presented on 11/09/2018 for an elective incisional hernia repair and co-surgery with medical doctor nuclear medicine. She underwent lap ysis of adhesions, robotic incisional hernia repair with 12 cm round symbotex covidian mesh (Dr. Fernandez) and right salpingo-oopherectomy by Dr. Rodríguez at that time. Her postoperative course was complicated by pain control. She reports her pain is now controlled, she has been out of bed to the chair and ambulate in the hallway. She would like to go home today. We will begin discharge planning to home with a follow-up in the office in approximately 2 weeks. Of note during the hospital stay she was started on Lovenox BID until her INR was therapeutic. On 11/12/2018 her INR was 2.0. She is advised that she does not need to continue the Lovenox injections at home and follow-up with her Coumadin clinic as directed. - Time Spent with Patient Total time spent providing and/or coordinating discharge services: - Discharge Medications Prescriptions: New Docusate Sodium [Colace] 100 mg PO BID PRN #30 capsule PRN Reason: Contstipation Polyethylene Glycol 3350 [MiraLAX Powder Bulk 17.9 Oz] 1 scoop PO DAILY 30 Days #510 gm OxyCODONE Immed Rel [Roxicodone 5 MG] 5 mg PO Q6HR PRN 7 Days #28 tablet PRN Reason: Severe Pain Ondansetron ODT [Zofran ODT] 4 mg SL Q4HR PRN #30 tab.rapdis PRN Reason: Nausea Lidocaine Patch [Lidoderm 5% patch] 1 each TP DAILY PRN 15 Days #15 adh..patch PRN Reason: Pain Continued Ascorbate Calcium [Vitamin C] 500 mg PO QPM BuPROPion SR (12 HR) [Wellbutrin SR] 150 mg PO BID Atorvastatin [Lipitor] 40 mg PO QPM Diphenoxylate/Atropine [Lomotil 2.5 mg/0.025 mg] 1 each PO QID PRN #0 PRN Reason: Diarrhea Ranitidine HCl [Heartburn Relief] 150 mg PO BID Milnacipran HCl [Savella] 50 mg PO BID Tizanidine HCl [Zanaflex] 4 mg PO TID PRN PRN Reason: Spasms Warfarin [Coumadin] 10 mg PO SUMOWEFRSA Warfarin [Coumadin] 12.5 mg PO TUTH Ergocalciferol (VITAMIN D2) [Vitamin D2] 50,000 unit PO MO Ferrous Sulfate 325 mg PO QPM Pantoprazole Sodium [Protonix] 40 mg PO QAM Topiramate [Topamax] 50 mg PO BID Discontinued Enoxaparin [Lovenox] 80 mg SQ BID Home Medications: Milnacipran HCl [Savella] 50 mg PO BID 02/22/16 [History] Ranitidine HCl [Heartburn Relief] 150 mg PO BID 02/22/16 [History] Tizanidine HCl [Zanaflex] 4 mg PO TID PRN 02/22/16 [History] Warfarin [Coumadin] 10 mg PO SUMOWEFRSA 05/23/16 [History] Warfarin [Coumadin] 12.5 mg PO TUTH 09/20/16 [History] Ergocalciferol (VITAMIN D2) [Vitamin D2] 50,000 unit PO MO 09/17/18 [History] Ferrous Sulfate 325 mg PO QPM 09/17/18 [History] Pantoprazole Sodium [Protonix] 40 mg PO QAM 09/17/18 [History] Topiramate [Topamax] 50 mg PO BID 09/17/18 [History] Ascorbate Calcium [Vitamin C] 500 mg PO QPM 11/09/18 [History] Atorvastatin [Lipitor] 40 mg PO QPM 11/09/18 [History] BuPROPion SR (12 HR) [Wellbutrin SR] 150 mg PO BID 11/09/18 [History] Diphenoxylate/Atropine [Lomotil 2.5 mg/0.025 mg] 1 each PO QID PRN #0 11/12/18 [Rx] Docusate Sodium [Colace] 100 mg PO BID PRN #30 capsule 11/12/18 [Rx] Lidocaine Patch [Lidoderm 5% patch] 1 each TP DAILY PRN 15 Days #15 adh..patch 11/12/18 [Rx] Ondansetron ODT [Zofran ODT] 4 mg SL Q4HR PRN #30 tab.rapdis 11/12/18 [Rx] OxyCODONE Immed Rel [Roxicodone 5 MG] 5 mg PO Q6HR PRN 7 Days #28 tablet 11/12/18 [Rx] Polyethylene Glycol 3350 [MiraLAX Powder Bulk 17.9 Oz] 1 scoop PO DAILY 30 Days #510 gm 11/12/18 [Rx] Allergies/Adverse Reactions: Allergy/AdvReac Type Severity Reaction Status Date / Time tramadol AdvReac See Verified 11/09/18 09:39 Comments Date of admission: 11/09/18 11:04 Primary care physician: Itzel Hatfield [employer]CH[employer]ICIAN Discharging clinician: Marija Jimenez Anticipated date of discharge: 11/12/18 Labs on day of discharge: Labs from last 24 hours 11/12/18 05:30 PT 23.0 H D INR 2.0 D - Patient Status Disposition: Home, Self-Care Condition: Good Functional capacity at discharge: independent ambulation Overall status at discharge: patient is progressing back to baseline - Discharge Instructions Instructions: Laparoscopic Herniorrhaphy (DC), Laparoscopic Salpingo- oophorectomy (DC) Follow Up With: Jil Fernandez MD [Partnered Physician] - 11/25/18 2:20 pm Itzel Hatfield CNP [Primary Care Provider] - Additional Instructions: General Surgical Discharge Instructions 1. No pushing, pulling, or lifting greater than 15 lbs for 6 weeks. 2. You may remove your dressings and shower beginning today, but no tub baths, soaking, or swimming for 2 weeks. 3. No driving for one weeks unless otherwise specified and then you may resume driving when you are off narcotics and are safe to react in a car. 4. Take 1000mg acetaminophen every 6 hours. Apply ice to your abdomen for 20 minutes every hour you are awake. Apply one lidocaine patch daily if needed. If this does not relieve discomfort, you may take the as needed Oxycodone. Eat a small snack with pain medication as this will help reduce the risk of nausea. Take narcotics as directed. Do not take more narcotics then directed and do not share your narcotics with any other person. Do not drink alcohol while on narcotics. You can take the Zofran/ondansetron if needed for nausea or with a dose of narcotics to prevent nausea. 5. Take stool softeners (Colace) twice daily and (Miralax) while taking narcotics daily until you are having daily bowel movements that are mashed potatoes consistency and not painful. You can then decrease MiraLAX to every other day or as needed. Continue the stool softeners until you stop taking narcotics.. You may hold for loose stools. 6. Report any fevers greater than 100.5F, increase abdominal discomfort, drainage that looks like pus, increased redness or pain at the surgical site, or any vomiting. 7. Report any pain in the calves, shortness of breath, or rapid heartbeat. 8. Follow-up in the office as directed. 9. You do not need to continue the Lovenox shots because your INR was 2.0 today () follow up with your Coumadin clinic on tomorrow for directions through the weekend. - Diet and Activity Activity: increase activity as tolerated Diet: advance to your usual diet
[2018-11-12] MEDS: Ondansetron 4 MG/2 ML VIAL IVP PRN (11:26)
== END 2018-11-12 13:27 | disposition home or self-care (01) ==
LOC: 3ANU 08:13 → SAMDAY 08:13 → 3ANU 14:43
PROVIDERS: ADMIT Surgery; ATTEND Surgery